=== PATIENT | female | born 1965 | race Caucasian/White ===

== ENCOUNTER 2023-02-25 12:09 | Day surgery (SDC) | payer BC ==
[~2023-02-25] VITALS: Ht 157.5 cm; Wt 93.0 kg
[2023-02-25] MEDS ORDERED: fentaNYL CITRATE/PF 100 MCG/2 ML AMP ONE (12:32)
[2023-02-25] MEDS ORDERED: MIDAZOLAM HCL 5 MG/5 ML VIAL ONE (12:33)
[2023-02-25] MEDS ORDERED: PROPOFOL 200MG/ 20ML VIAL (DIPRIVAN) IV ONE (13:40)
[2023-02-25] MEDS ORDERED: NS 1000 ML IV.SOLN IV ONE (13:40)
[2023-02-25 14:11] VITALS: O2SAT 100
[2023-02-25 16:21] VITALS: BP_SYST 139; PULSE 72; RESP 17
== END 2023-02-25 14:55 | disposition home or self-care (01) ==
LOC: SDS 12:09 → SMU 12:17 → SDS 14:55
PROVIDERS: ATTEND Surgery
DX: K62.5 Hemorrhage of anus and rectum (principal); K57.30 Diverticulosis of large intestine without perforation or abscess without bleeding; K64.8 Other hemorrhoids
CPT/HCPCS: 45378; J2250; J2704; J3010; J7030